=== PATIENT | male | born 1995 | race Hispanic/Latino ===

== ENCOUNTER 2016-10-08 18:47 | Emergency (ER) | payer OTHER ==
[~2016-10-08] VITALS: Ht 170.2 cm; Wt 90.9 kg
[~2016-10-08 18:47] MED LIST: AUGMENTIN875 MG PO; CELEXA; GABAPENTIN300 MG PO; LEXAPRO20 MG PO; LEXAPRO5 MG; STRATTERA; ZYBAN 150 MG T150 MG PO; [UNRECOGNIZED DRUG - REMARK]
[2016-10-08 19:36] LABS: EOSINOPHIL (%) 0.6 % (0-5); EOSINOPHIL COUNT 0.1 K/uL (0-0.3); HEMATOCRIT 42.7 % (38.0-50.0); IMMATURE GRANULOCYTE (%) 1.1 % (0.0-0.7); IMMATURE GRANULOCYTE COUNT 1.4 K/uL; LYMPHOCYTE COUNT 2.1 K/uL (1.0-2.8); MCH 29.4 PG (29.0-34.0); MCHC 34.2 G/DL (30.0-36.0); MCV 85.9 FL (86-99); MEAN PLAT.VOLUME 9.6 uM^3 (9.0-12.4); MONOCYTE (%) 10.1 % (3-12); MONOCYTE COUNT 1.3 K/uL (0-0.8); NEUTROPHIL (%) 71.7 % (45-76); NEUTROPHIL COUNT 9.4 K/uL (1.8-6.4); PLATELET COUNT 263 K/uL (156-360); RBC DIS.WIDTH-CV 13.3 % (11.8-14.6); RBC DIS.WIDTH-SD 40.9 % (39-53); RED BLOOD COUNT 4.97 M/uL (4.00-5.50); WHITE BLOOD COUNT 13.1 K/uL (4.1-10.2)
[2016-10-08 19:45] LABS: CHLORIDE 105 mEq/L (99-109); POTASSIUM 3.6 mEq/L (3.7-5.4); SODIUM 141 mEq/L (136-147)
[2016-10-08 19:47] LABS: GLUCOSE 80 mg/dL (70-99)
[2016-10-08 19:48] LABS: ANION GAP 10 MEQ/L (2-14)
[2016-10-08 19:49] LABS: TOTAL BILIRUBIN 0.2 mg/dL (0.0-1.0)
[2016-10-08 19:50] LABS: SERUM ETHYL ALCOHOL < 10 mg/dL
[2016-10-08 19:51] LABS: ALKALINE PHOSPHATASE 59 IU/L (3-129); GFR ESTIMATE (CALCULATED) > 59 mL/min/
[2016-10-08 19:52] LABS: UREA NITROGEN (BUN) 15 mg/dL (9-23)
[2016-10-08] MEDS ORDERED: OLANZAPINE10 MG PO (21:03)
[2016-10-08] MEDS ORDERED: BUSPAR10 MG PO (21:04)
[2016-10-08 21:07] LABS: AMPHETAMINE NEGATIVE (500 ng/mL); BARBITURATES NEGATIVE (200 ng/mL); BENZODIAZEPINES NEGATIVE (150 ng/mL); COCAINE NEGATIVE (150 ng/mL); INTERNAL CONTROLS VALID? YES; METHADONE NEGATIVE (200 ng/mL); METHAMPHETAMINE NEGATIVE (500 ng/mL); OPIATES (MORPHINE) NEGATIVE (100 ng/mL); OXYCODONE NEGATIVE (100 ng/mL); PHENCYCLIDINE NEGATIVE (25 ng/mL); PROPOXYPHENE NEGATIVE (300 ng/mL); THC CANNABINOIDS PRESUMPTIVE POSITIVE (50 ng/mL); TRICYCLIC ANTIDEPRESSANTS NEGATIVE (300 ng/mL)
[2016-10-08 21:08] LABS: ADD MEDTOX COMMENT Y
[2016-10-09 08:42] VITALS: BP 131/92
== END 2016-10-09 08:43 ==
LOC: EME 18:47
PROVIDERS: Emergency Medicine
DX: F31.5 Bipolar disorder, current episode depressed, severe, with psychotic features (principal); F20.9 Schizophrenia, unspecified; F63.81 Intermittent explosive disorder; F12.20 Cannabis dependence, uncomplicated; K21.9 Gastro-esophageal reflux disease without esophagitis; F17.200 Nicotine dependence, unspecified, uncomplicated
CPT/HCPCS: 80053; 84999; 85025; 90837; 99281; 99284; G0480

== ENCOUNTER 2016-10-30 15:43 | Emergency (ER) | payer OTHER ==
[~2016-10-30] VITALS: Ht 170.2 cm; Wt 102.4 kg
[~2016-10-30 15:43] MED LIST changes: +BUSPAR10 MG PO; +OLANZAPINE10 MG PO
[2016-10-30 16:13] LABS: HEMATOCRIT 46.3 % (38.0-50.0); MCH 28.8 PG (29.0-34.0); MCHC 32.2 G/DL (30.0-36.0); MCV 89.4 FL (86-99); MEAN PLAT.VOLUME 9.4 uM^3 (9.0-12.4); PLATELET COUNT 243 K/uL (156-360); RBC DIS.WIDTH-CV 13.1 % (11.8-14.6); RBC DIS.WIDTH-SD 42.7 % (39-53); RED BLOOD COUNT 5.18 M/uL (4.00-5.50)
[2016-10-30 16:18] LABS: WHITE BLOOD COUNT 8.1 K/uL (4.1-10.2)
[2016-10-30 16:38] LABS: CHLORIDE 104 mEq/L (99-109); POTASSIUM 4.1 mEq/L (3.7-5.4); SODIUM 141 mEq/L (136-147)
[2016-10-30 16:41] LABS: GLUCOSE 88 mg/dL (70-99)
[2016-10-30 16:42] LABS: ANION GAP 11 MEQ/L (2-14)
[2016-10-30 16:43] LABS: TOTAL BILIRUBIN 0.3 mg/dL (0.0-1.0)
[2016-10-30 16:44] LABS: ALKALINE PHOSPHATASE 50 IU/L (3-129); SERUM ETHYL ALCOHOL < 10 mg/dL
[2016-10-30 16:45] LABS: GFR ESTIMATE (CALCULATED) > 59 mL/min/
[2016-10-30 16:46] LABS: UREA NITROGEN (BUN) 13 mg/dL (9-23)
[2016-10-30 17:43] VITALS: BP 137/98
== END 2016-10-30 17:45 | disposition home or self-care (01) ==
LOC: EME 15:43
PROVIDERS: Emergency Medicine
DX: R45.6 Violent behavior (principal); F31.9 Bipolar disorder, unspecified; K21.9 Gastro-esophageal reflux disease without esophagitis; F17.200 Nicotine dependence, unspecified, uncomplicated
CPT/HCPCS: 80053; 81003; 85027; 90837; 99281; 99285; G0480

== ENCOUNTER 2016-11-23 16:58 | Emergency (ER) | payer OTHER ==
[~2016-11-23] VITALS: Ht 170.2 cm; Wt 106.5 kg
[2016-11-23] MEDS ORDERED: DEPAKOTE125 MG PO (17:38)
[2016-11-23] MEDS ORDERED: BUSPIRONE HCL15 MG PO (17:41)
[2016-11-23] MEDS ORDERED: LEXAPRO10 MG PO (17:42)
[2016-11-23] MEDS ORDERED: RANITIDINE HCL150 MG PO (17:42)
[2016-11-23] MEDS ORDERED: DIVALPROEX SOD500 MG PO (17:43)
[2016-11-23] MEDS ORDERED: OLANZAPINE5 MG PO (17:44)
[2016-11-23 17:54] LABS: HEMATOCRIT 42.8 % (38.0-50.0); MCH 28.9 PG (29.0-34.0); MCHC 32.7 G/DL (30.0-36.0); MCV 88.2 FL (86-99); MEAN PLAT.VOLUME 9.8 uM^3 (9.0-12.4); PLATELET COUNT 238 K/uL (156-360); RBC DIS.WIDTH-CV 13.3 % (11.8-14.6); RBC DIS.WIDTH-SD 42.9 % (39-53); RED BLOOD COUNT 4.85 M/uL (4.00-5.50); WHITE BLOOD COUNT 6.7 K/uL (4.1-10.2)
[2016-11-23 18:05] LABS: CHLORIDE 105 mEq/L (99-109); POTASSIUM 3.9 mEq/L (3.7-5.4); SODIUM 141 mEq/L (136-147)
[2016-11-23 18:08] LABS: GLUCOSE 122 mg/dL (70-99)
[2016-11-23 18:09] LABS: ANION GAP 10 MEQ/L (2-14); TOTAL BILIRUBIN 0.2 mg/dL (0.0-1.0)
[2016-11-23 18:10] LABS: SERUM ETHYL ALCOHOL < 10 mg/dL
[2016-11-23 18:11] LABS: ALKALINE PHOSPHATASE 44 IU/L (3-129); GFR ESTIMATE (CALCULATED) > 59 mL/min/
[2016-11-23 18:12] LABS: UREA NITROGEN (BUN) 12 mg/dL (9-23)
[2016-11-23 19:07] VITALS: BP 115/82
== END 2016-11-23 19:19 | disposition home or self-care (01) ==
LOC: EME 16:58
PROVIDERS: Emergency Medicine
DX: F32.9 Major depressive disorder, single episode, unspecified (principal); F31.5 Bipolar disorder, current episode depressed, severe, with psychotic features; F63.81 Intermittent explosive disorder; F12.20 Cannabis dependence, uncomplicated; Z88.5 Allergy status to narcotic agent; Z88.1 Allergy status to other antibiotic agents; Z87.891 Personal history of nicotine dependence; F20.9 Schizophrenia, unspecified; F31.9 Bipolar disorder, unspecified
CPT/HCPCS: 80053; 81003; 85027; 90837; 99281; 99285; G0480

== ENCOUNTER 2016-12-30 22:40 | Emergency (ER) | payer OTHER ==
[~2016-12-30] VITALS: Ht 170.2 cm; Wt 108.9 kg
[~2016-12-30 22:40] MED LIST changes: +BUSPIRONE HCL15 MG PO; +DEPAKOTE125 MG PO; +DIVALPROEX SOD500 MG PO; +LEXAPRO10 MG PO; +OLANZAPINE5 MG PO; +RANITIDINE HCL150 MG PO
[2016-12-30 23:49] LABS: HEMATOCRIT 40.7 % (38.0-50.0); MCH 28.4 PG (29.0-34.0); MCHC 32.7 G/DL (30.0-36.0); MEAN PLAT.VOLUME 9.5 uM^3 (9.0-12.4); PLATELET COUNT 211 K/uL (156-360); RBC DIS.WIDTH-CV 13.1 % (11.8-14.6); RBC DIS.WIDTH-SD 41.2 % (39-53); RED BLOOD COUNT 4.68 M/uL (4.00-5.50); WHITE BLOOD COUNT 7.9 K/uL (4.1-10.2)
[2016-12-31 00:02] LABS: CHLORIDE 103 mEq/L (99-109); POTASSIUM 3.6 mEq/L (3.7-5.4); SODIUM 139 mEq/L (136-147)
[2016-12-31 00:04] LABS: GLUCOSE 123 mg/dL (70-99)
[2016-12-31 00:05] LABS: ANION GAP 10 MEQ/L (2-14)
[2016-12-31 00:07] LABS: SERUM ETHYL ALCOHOL < 10 mg/dL
[2016-12-31 00:08] LABS: GFR ESTIMATE (CALCULATED) > 59 mL/min/; UREA NITROGEN (BUN) 14 mg/dL (9-23)
[2016-12-31] MEDS ORDERED: TRAZODONE HCL50 MG PO (01:18)
[2016-12-31 01:47] VITALS: BP 141/87
== END 2016-12-31 01:49 | disposition home or self-care (01) ==
LOC: EME → EDBD 22:40 → EME 22:40
PROVIDERS: Emergency Medicine
DX: F32.9 Major depressive disorder, single episode, unspecified (principal); F63.81 Intermittent explosive disorder; Z87.891 Personal history of nicotine dependence
CPT/HCPCS: 80048; 85027; 90837; 99281; 99285; G0480

== ENCOUNTER 2017-01-31 19:37 | Emergency (ER) | payer OTHER ==
[~2017-01-31] VITALS: Ht 170.2 cm; Wt 111.1 kg
[~2017-01-31 19:37] MED LIST changes: +TRAZODONE HCL50 MG PO
[2017-01-31] MEDS ORDERED: ARIPIPRAZOLE5 MG PO (20:47)
[2017-01-31] MEDS ORDERED: NIGHTTIME SLEEP PO (20:48)
[2017-02-01 00:36] LABS: HEMATOCRIT 41.8 % (38.0-50.0); MCH 28.9 PG (29.0-34.0); MCV 87.4 FL (86-99); MEAN PLAT.VOLUME 9.6 uM^3 (9.0-12.4); PLATELET COUNT 237 K/uL (156-360); RBC DIS.WIDTH-CV 13.2 % (11.8-14.6); RBC DIS.WIDTH-SD 42.1 % (39-53); RED BLOOD COUNT 4.78 M/uL (4.00-5.50); WHITE BLOOD COUNT 8.3 K/uL (4.1-10.2)
[2017-02-01 00:47] LABS: CHLORIDE 104 mEq/L (99-109); POTASSIUM 3.9 mEq/L (3.7-5.4); SODIUM 139 mEq/L (136-147)
[2017-02-01 00:49] LABS: GLUCOSE 83 mg/dL (70-99)
[2017-02-01 00:50] LABS: ANION GAP 11 MEQ/L (2-14)
[2017-02-01 00:52] LABS: SERUM ETHYL ALCOHOL < 10 mg/dL
[2017-02-01 00:53] LABS: GFR ESTIMATE (CALCULATED) > 59 mL/min/
[2017-02-01 00:54] LABS: UREA NITROGEN (BUN) 12 mg/dL (9-23)
[2017-02-01] MEDS ORDERED: LEXAPRO20 MG PO (01:22)
[2017-02-01] MEDS ORDERED: ARIPIPRAZOLE5 MG PO (01:22)
[2017-02-01] MEDS ORDERED: NICOTINE GUM4 MG BC (01:23)
[2017-02-01 12:40] LABS: ADD MEDTOX COMMENT Y; AMPHETAMINE NEGATIVE (500 ng/mL); BARBITURATES NEGATIVE (200 ng/mL); BENZODIAZEPINES NEGATIVE (150 ng/mL); COCAINE NEGATIVE (150 ng/mL); INTERNAL CONTROLS VALID? YES; METHADONE NEGATIVE (200 ng/mL); METHAMPHETAMINE NEGATIVE (500 ng/mL); OPIATES (MORPHINE) NEGATIVE (100 ng/mL); OXYCODONE NEGATIVE (100 ng/mL); PHENCYCLIDINE NEGATIVE (25 ng/mL); PROPOXYPHENE NEGATIVE (300 ng/mL); THC CANNABINOIDS PRESUMPTIVE POSITIVE (50 ng/mL); TRICYCLIC ANTIDEPRESSANTS NEGATIVE (300 ng/mL)
[2017-02-01 15:35] VITALS: BP 111/60
== END 2017-02-01 17:09 ==
LOC: EME 19:37
PROVIDERS: Emergency Medicine
DX: F39 Unspecified mood [affective] disorder (principal); R45.850 Homicidal ideations; R45.851 Suicidal ideations; F63.81 Intermittent explosive disorder; F32.9 Major depressive disorder, single episode, unspecified; F20.9 Schizophrenia, unspecified; F31.9 Bipolar disorder, unspecified; K21.9 Gastro-esophageal reflux disease without esophagitis; Z87.891 Personal history of nicotine dependence
CPT/HCPCS: 80048; 84999; 85027; 90837; 99281; 99285; G0480; J1630

== ENCOUNTER 2017-02-13 17:23 | Emergency (ER) | payer OTHER ==
[~2017-02-13] VITALS: Ht 170.2 cm; Wt 109.0 kg
[~2017-02-13 17:23] MED LIST changes: +ARIPIPRAZOLE5 MG PO; +NICOTINE GUM4 MG BC; +NIGHTTIME SLEEP PO
[2017-02-13 18:37] LABS: HEMATOCRIT 44.4 % (38.0-50.0); MCH 28.7 PG (29.0-34.0); MCHC 33.1 G/DL (30.0-36.0); MCV 86.7 FL (86-99); MEAN PLAT.VOLUME 9.6 uM^3 (9.0-12.4); PLATELET COUNT 257 K/uL (156-360); RBC DIS.WIDTH-CV 13.1 % (11.8-14.6); RED BLOOD COUNT 5.12 M/uL (4.00-5.50); WHITE BLOOD COUNT 11.1 K/uL (4.1-10.2)
[2017-02-13 18:47] LABS: CHLORIDE 104 mEq/L (99-109); POTASSIUM 4.1 mEq/L (3.7-5.4); SODIUM 139 mEq/L (136-147)
[2017-02-13 18:49] LABS: GLUCOSE 98 mg/dL (70-99)
[2017-02-13 18:50] LABS: ANION GAP 9 MEQ/L (2-14)
[2017-02-13 18:51] LABS: TOTAL BILIRUBIN 0.3 mg/dL (0.0-1.0)
[2017-02-13 18:52] LABS: SERUM ETHYL ALCOHOL < 10 mg/dL
[2017-02-13 18:53] LABS: ALKALINE PHOSPHATASE 59 IU/L (3-129); GFR ESTIMATE (CALCULATED) > 59 mL/min/
[2017-02-13 18:54] LABS: UREA NITROGEN (BUN) 11 mg/dL (9-23)
[2017-02-13 18:59] LABS: ADD MIUA? NO; BILIRUBIN NEGATIVE; BLOOD NEGATIVE; COLOR YELLOW ((YELLOW)); GLUCOSE (STRIP) NEGATIVE; KETONES NEGATIVE; LEUKOCYTES NEGATIVE; NITRITE NEGATIVE; PROTEIN (STRIP) 30; SPECIFIC GRAVITY 1.018 (1.000-1.030); UROBILINOGEN 0.2 MG/DL (0.2-1.0)
[2017-02-13 19:09] LABS: AMPHETAMINE NEGATIVE (500 ng/mL); BARBITURATES NEGATIVE (200 ng/mL); BENZODIAZEPINES NEGATIVE (150 ng/mL); COCAINE NEGATIVE (150 ng/mL); INTERNAL CONTROLS VALID? YES; METHADONE NEGATIVE (200 ng/mL); METHAMPHETAMINE NEGATIVE (500 ng/mL); OPIATES (MORPHINE) NEGATIVE (100 ng/mL); OXYCODONE NEGATIVE (100 ng/mL); PHENCYCLIDINE NEGATIVE (25 ng/mL); PROPOXYPHENE NEGATIVE (300 ng/mL); THC CANNABINOIDS NEGATIVE (50 ng/mL); TRICYCLIC ANTIDEPRESSANTS NEGATIVE (300 ng/mL)
[2017-02-13 19:49] VITALS: BP 124/82
== END 2017-02-13 19:47 | disposition home or self-care (01) ==
LOC: EME 17:23
PROVIDERS: Emergency Medicine
DX: F41.0 Panic disorder [episodic paroxysmal anxiety] (principal); F63.81 Intermittent explosive disorder; F32.9 Major depressive disorder, single episode, unspecified; Z04.6 Encounter for general psychiatric examination, requested by authority; Z87.891 Personal history of nicotine dependence
CPT/HCPCS: 80053; 81003; 85027; 90837; 99281; 99285; G0480

== ENCOUNTER 2017-07-14 03:30 | Emergency (ER) | payer OTHER ==
[~2017-07-14] VITALS: Ht 172.7 cm; Wt 109.5 kg
[2017-07-14 04:16] LABS: BASOPHIL COUNT 0.1 K/uL (0-0.1); EOSINOPHIL (%) 2.3 % (0-5); EOSINOPHIL COUNT 0.3 K/uL (0-0.3); IMMATURE GRANULOCYTE (%) 0.3 % (0.0-0.7); INSTRUMENT ABS NEUTROPHIL CT 7.8 K/uL; MCHC 33.3 G/DL (30.0-36.0); MCV 84.1 FL (86-99); MEAN PLAT.VOLUME 9.5 uM^3 (9.0-12.4); MONOCYTE (%) 7.5 % (3-12); NEUTROPHIL (%) 59.4 % (45-76); NEUTROPHIL COUNT 7.8 K/uL (1.8-6.4); PLATELET COUNT 304 K/uL (156-360); RBC DIS.WIDTH-CV 13.9 % (11.8-14.6); RBC DIS.WIDTH-SD 42.4 % (39-53); RED BLOOD COUNT 5.35 M/uL (4.00-5.50); WHITE BLOOD COUNT 13.2 K/uL (4.1-10.2)
[2017-07-14 04:28] LABS: CHLORIDE 105 mEq/L (99-109); POTASSIUM 3.5 mEq/L (3.7-5.4); SODIUM 139 mEq/L (136-147)
[2017-07-14 04:31] LABS: GLUCOSE 120 mg/dL (70-99)
[2017-07-14 04:32] LABS: ANION GAP 12 MEQ/L (2-14); TOTAL BILIRUBIN 0.6 mg/dL (0.0-1.0)
[2017-07-14 04:34] LABS: ALKALINE PHOSPHATASE 68 IU/L (3-129); GFR ESTIMATE (CALCULATED) > 59 mL/min/
[2017-07-14 04:35] LABS: UREA NITROGEN (BUN) 11 mg/dL (9-23)
[2017-07-14 06:30] VITALS: BP 90/52
== END 2017-07-14 07:08 | disposition home or self-care (01) ==
LOC: EME 03:30
PROVIDERS: Emergency Medicine
DX: F41.0 Panic disorder [episodic paroxysmal anxiety] (principal); F43.9 Reaction to severe stress, unspecified; E87.6 Hypokalemia; K21.9 Gastro-esophageal reflux disease without esophagitis; F32.9 Major depressive disorder, single episode, unspecified; F20.9 Schizophrenia, unspecified; F31.9 Bipolar disorder, unspecified; Z72.0 Tobacco use; Z88.5 Allergy status to narcotic agent; Z88.8 Allergy status to other drugs, medicaments and biological substances; Z88.1 Allergy status to other antibiotic agents
CPT/HCPCS: 80053; 81003; 85025; 99281; 99284; J2060; J7040

== ENCOUNTER 2017-07-17 16:52 | Emergency (ER) | payer OTHER ==
[~2017-07-17] VITALS: Ht 172.7 cm; Wt 108.7 kg
[2017-07-17] MEDS ORDERED: LEXAPRO10 MG PO (18:29)
[2017-07-17] MEDS ORDERED: PROPRANOLOL HCL10 MG PO (18:30)
[2017-07-17] MEDS ORDERED: BENADRYL50 MG PO (18:30)
[2017-07-17] MEDS ORDERED: OMEPRAZOLE20 M2 PO (18:31)
[2017-07-17 23:45] LABS: APPEARANCE CLEAR/COLORLESS
[2017-07-17 23:58] LABS: RED CELL AREA COUNTED 18; RED CELL COUNT 0 /MM^3 (0-1); RED CELL DILUTION 1
[2017-07-17 23:59] LABS: WBC AREA COUNTED 18; WBC DILUTION 1; WHITE CELL COUNT 0 /MM^3 (0-5); WHITE CELL RAW COUNT 0
[2017-07-18 00:07] LABS: MONO RAW COUNT ND; POLY RAW COUNT ND
[2017-07-18 00:08] LABS: CSF EOSINOPHILS ND % (0-25); MONONUCLEAR WBC'S ND % (50-90); POLYNUCLEAR WBC'S ND % (0-3)
[2017-07-18 00:19] LABS: SPINAL FLD COMMENT ND
[2017-07-18 01:25] VITALS: BP 128/70
== END 2017-07-18 01:39 | disposition home or self-care (01) ==
LOC: EME 16:52
PROVIDERS: Physician Assistant
PROC: 009U3ZX Drainage of Spinal Canal, Percutaneous Approach, Diagnostic (ICD-10-PCS; principal; 2017-07-17)
DX: R51 Headache (principal); H53.8 Other visual disturbances; R11.0 Nausea; M54.2 Cervicalgia; R20.2 Paresthesia of skin; F17.200 Nicotine dependence, unspecified, uncomplicated; Z71.6 Tobacco abuse counseling
CPT/HCPCS: 70450; 82945; 84157; 87070; 87205; 89051; 99281; 99284